=== PATIENT | male | born 1950 | race Caucasian/White ===

== ENCOUNTER → 2018-02-07 | Outpatient (CLI) | payer OTHER ==
--- NOTE | 2018-02-07 12:32 | CT ---
EXAMINATION TYPE: CT abdomen pelvis wo con DATE OF EXAM: 02/07/2018 COMPARISON: CT abdomen pelvis 10/04/2010 HISTORY: Hematuria CT DLP: 437.4 mGycm Automated exposure control for dose reduction was used. TECHNIQUE: Helical acquisition of images from the lung bases through the pelvis. FINDINGS: Lack of intravenous contrast could compromise sensitivity. There is a hiatal hernia present . Small umbilical hernia contains fat. LUNG BASES: No significant abnormality is appreciated. AORTA: No significant abnormality is appreciated. LIVER/GB: There is low attenuation are scattered within the liver which are indeterminate. Dependent densities within the gallbladder compatible with stones. PANCREAS: Scattered calcifications again noted possibly indicative of chronic pancreatitis. SPLEEN: No significant abnormality is seen. ADRENALS: No significant abnormality is seen. KIDNEYS: No significant abnormality is seen. REPRODUCTIVE ORGANS: Prostate is enlarged and shows associated calcifications. URINARY BLADDER: No significant abnormality is seen. BOWEL: Scattered diverticular change is present, no evident bowel obstruction, appendix not seen wit h certainty. FREE AIR: No Free Air is visible. ASCITES: None visible. PELVIC ADENOPATHY: None visualized. RETROPERITONEAL ADENOPATHY: No Retroperitoneal Adenopathy visible. OSSEOUS STRUCTURES: Bilateral spondylolysis at L5, there is anterolisthesis grade 1. Degenerative di sc changes, facet arthropathy noted in the lumbar spine. IMPRESSION: THERE ARE SUBCENTIMETER INDETERMINATE LIVER ABNORMALITIES ARE POORLY CHARACTERIZED, ALTERNATE IMAGING MAY BE OF BENEFIT. CHOLELITHIASIS. LACK OF CONTRAST COULD COMPROMISE SENSITIVITY. Additional finding s above.
== END | disposition home or self-care (01) ==
LOC: RADCTMAIN 09:28
PROVIDERS: ATTEND Urology
DX: K80.20 Calculus of gallbladder without cholecystitis without obstruction (principal); K42.9 Umbilical hernia without obstruction or gangrene; K86.89 Other specified diseases of pancreas; K57.30 Diverticulosis of large intestine without perforation or abscess without bleeding
CPT/HCPCS: 36415; 74176; 82565; 84520